=== PATIENT | male | born 1960 | race African-American/Black ===

== ENCOUNTER 2018-10-21 09:29 | Inpatient (IN) | payer OTHER ==
[2018-10-21 09:59] VITALS: BMI 24.3
--- NOTE | 2018-10-21 10:29 | HP ---
COWS - Scale Resting Pulse: 0= RI 80 or Below Sweatin= Chills/Flushing Restless Observation: 1= Difficult to Sit Still Pupil Size: 0= Normal to Room Light Bone or Joint Aches: 2= Severe Diffuse Aches Runny Nose/ Eye Tearin= Runny Nose/Eyes GI Upset > 30mins: 2= Nausea/Diarrhea Tremor Observation: 0= None Yawning Observation: 0= None Anxiety or Irritability: 2=Irritable/Anxious Goose Flesh Skin: 0=Smooth Skin COWS Score: 10 CIWA Score Nausea/Vomitin-No Nausea/No Vomiting Muscle Tremors: None Anxiety: 4-Mod. Anxious/Guarded Agitation: 3 Paroxysmal Sweats: 1-Minimal Palms Moist Orientation: 0-Oriented Tacttile Disturbances: 2-Mild Itch/Numbness/Burn Auditory Disturbances: 0-None Visual Disturbances: 0-None Headache: 0-None Present CIWA-Ar Total Score: 10 - Admission Criteria OASAS Guidelines: Admission for Medically Managed Detox: Requires at least one of the followin. CIWA greater than 12 2. Seizures within the past 24 hours 3. Delirium tremens within the past 24 hours 4. Hallucinations within the past 24 hours 5. Acute intervention needed for co occurring medical disorder 6. Acute intervention needed for co occurring psychiatric disorder 7. Severe withdrawal that cannot be handled at a lower level of care (continued vomiting, continued diarrhea, abnormal vital signs) requiring intravenous medication and/or fluids 8. Admission ROS [facility] Allergies/Adverse Reactions: Allergies Allergy/AdvReac Type Severity Reaction Status Date / Time egg Allergy Vomiting Verified 10/21/18 09:46 History of Present Illness: pt here requesting detox from opiate and etoh use , reports 1 large can of beer /day , current symptoms as above , etoh use " for years " since age 16 , denies seizures, + blackouts . heroin : 10-12 bags/day via inhalation , past IVDU use , first age of use 16 , current symptoms as above , latest use yesterday cannabis - occasional use tobacco : 1/2 ppd PMHX : HIV dx 1991 , on meds @ [facility] PSHx : alicia hernia inguinal 10 years ago , bunionectomy R 1995 PSych : denies , denies cuurent SI / HI SHx : lives alone , unemployed . Exam Limitations: Clinical Condition - Ebola screening Have you traveled outside of the country in the last 21 days: No Have you had contact with anyone from an Ebola affected area: No Do you have a fever: No - Review of Systems Constitutional: See HPI EENT: reports: See HPI Respiratory: reports: No Symptoms reported Cardiac: reports: No Symptoms Reported GI: reports: See HPI : reports: No Symptoms Reported Musculoskeletal: reports: Back Pain, Muscle Pain Integumentary: reports: See HPI Neuro: reports: No Symptoms reported Endocrine: reports: No Symptoms Reported Psychiatric: reports: Orientated x3, Agitated, Anxious Patient History - Smoking Cessation Smoking history: Current every day smoker Initiated information on smoking cessation: No - Substances abused Heroin Substance route: Inhalation Frequency: Daily Amount used: 10 bags Age of first use: 16 Date of last use: 10/20/18 Alcohol Substance route: Oral Frequency: Daily Amount used: [place] beer - 1 bottle Age of first use: 16 Date of last use: 10/20/18 Marijuana/Hashish Substance route: Smoking Frequency: Daily Amount used: quarter ounce Age of first use: 16 Date of last use: 10/20/18 Family Disease History - Family Disease History Family Disease History: Other: Father (d. 70's), Mother (d. 70's ) Admission Physical Exam S - Vital Signs Vital Signs: Vital Signs - 24 hr 10/21/18 10/21/18 09:45 10:15 Temperature 97.4 F L 97.4 F L Pulse Rate 170 H 170 H Respiratory 16 16 Rate Blood Pressure 138/84 138/84 - Physical General Appearance: Yes: Mild Distress, Irritable, Anxious HEENTM: Yes: EOMI, Hearing grossly Normal, Normocephalic, Normal Voice Respiratory: Yes: Chest Non-Tender, Lungs Clear, Normal Breath Sounds Neck: Yes: No masses,lesions,Nodules, Trachea in good position Cardiology: Yes: Regular Rhythm, Regular Rate, S1, S2 Abdominal: Yes: Non Tender, Soft Back: Yes: Normal Inspection Musculoskeletal: Yes: Gait Steady Extremities: Yes: Non-Tender Neurological: Yes: Fully Oriented, Alert, Motor Strength 5/5 Integumentary: Yes: Track Yee - Diagnostic (1) Opioid abuse Current Visit: Yes Status: Acute (2) Cannabis dependence Current Visit: Yes Status: Acute (3) Nicotine dependence Current Visit: Yes Status: Acute Qualifiers: Nicotine product type: cigarettes (4) Alcohol use disorder Current Visit: Yes Status: Acute Breathalyzer - Breathalyzer Breathalyzer: 0 Urine Drug Screen - Test Device Lot number: [id number] Expiration date: 05/16/20 - Control Is test valid?: Yes - Results Drug screen NEGATIVE: No Urine drug screen results: THC-Marijuana, FEN-Fentanyl, MOP-Opiates Inpatient Rehab Admission - Rehab Decision to Admit Inpatient rehab admission?: No
[2018-10-21] MEDS ORDERED: hydrOXYzine PAMOATE 25 MG CAPSULE (FP) PO PRN (10:35)
[2018-10-21] MEDS ORDERED: MAGNESIUM CITRATE 300 ML BOTTLE PO PRN (10:35)
[2018-10-21] MEDS ORDERED: MAGNESIUM HYDROX 2400MG/30ML ORAL SUSPENSION 30 ML CUP PO PRN (10:35)
[2018-10-21] MEDS ORDERED: ACETAMINOPHEN 325 MG TABLET (FP) PO PRN ×2 (10:35)
[2018-10-21] MEDS ORDERED: MENTHOL/PHENOL 1 EACH UD MM PRN (10:35)
[2018-10-21] MEDS ORDERED: MELATONIN 5 MG TABLETS PO PRN (10:35)
[2018-10-21] MEDS ORDERED: cloNIDine HCL 0.1 MG TABLET PO PRN ×2 (10:35→19:13)
[2018-10-21] MEDS ORDERED: DICYCLOMINE HCL 10 MG CAPSULE PO PRN (10:35)
[2018-10-21] MEDS ORDERED: NICOTINE POLACRILEX 2 MG GUM BUC PRN (10:35)
[2018-10-21] MEDS ORDERED: IBUPROFEN 400 MG TABLET (FP) PO PRN (10:35)
[2018-10-21] MEDS ORDERED: MAG HYDROX/AL HYDROX/SIMETH 30 ML UNIT-DOSE CUP PO PRN (10:35)
[2018-10-21] MEDS ORDERED: METHOCARBAMOL 500 MG TABLET PO PRN (10:35)
[2018-10-21] MEDS ORDERED: METHADONE HCL 10 MG TABLET (FOR DETOX USE ONLY) PO ONE ×3 (11:00→22:00)
[2018-10-21] MEDS: diazePAM 5 MG TABLET PO PRN ×3 (12:08→19:25)
[2018-10-21] MEDS: diazePAM 5 MG TABLET PO SCH ×2 (15:24→22:19)
[2018-10-21 19:31] LABS: HEMATOCRIT 38.8 % (35.4-49); HEMOGLOBIN 12.9 GM/dL (11.7-16.9); MCH 30.9 pg (25.7-33.7); MCHC 33.2 g/dl (32.0-35.9); MEAN PLT VOLUME 7.9 fl (7.5-11.1); PLATELET COUNT 261 K/MM3 (134-434); RBC 4.17 M/mm3 (4.00-5.60); RDW 14.3 % (11.9-15.9); WHITE BLOOD COUNT 3.2 K/mm3 (4.0-10.0)
[2018-10-21 19:39] LABS: ALK PHOS 108 U/L (45-117); ANION GAP 4 MMOL/L (8-16); BILIRUBIN,TOTAL 0.8 mg/dL (0.2-1); BLOOD UREA NITROGEN 17 mg/dL (7-18); CALCIUM 8.8 mg/dL (8.5-10.1); CHLORIDE 103 mmol/L (98-107); CO2 32 mmol/L (21-32); GLUCOSE,RANDOM 89 mg/dL (74-106); POTASSIUM 4.3 mmol/L (3.5-5.1); SGOT/AST 31 U/L (15-37); SGPT/ALT 32 U/L (13-61); SODIUM 139 mmol/L (136-145); TOT PROT 7.3 g/dl (6.4-8.2)
[2018-10-21] MEDS ORDERED: THIAMINE HCL 100 MG TABLET (FP) PO SCH (22:00)
[2018-10-22] MEDS: diazePAM 5 MG TABLET PO SCH (06:10)
[2018-10-22] MEDS: diazePAM 5 MG TABLET PO PRN (07:50)
[2018-10-22] MEDS ORDERED: EMTRICITABINE 200MG/TENOFOVIR 300MG PO SCH (08:00)
[2018-10-22] MEDS ORDERED: ATAZANAVIR SO4 300 MG CAPSULE PO SCH (08:00)
[2018-10-22] MEDS ORDERED: RITONAVIR 100 MG TABLET PO SCH (08:00)
[2018-10-22] MEDS ORDERED: ONDANSETRON *ODT* 4 MG TABLET SL ONE (09:00)
[2018-10-22] MEDS ORDERED: METHADONE HCL 10 MG TABLET (FOR DETOX USE ONLY) PO ONE (10:00)
[2018-10-22] MEDS ORDERED: PRENATAL VITAMINS W/ FOLIC ACID TABLET (FP) PO SCH (10:00)
[2018-10-22 10:15] VITALS: BP 139/98; PULSE 78; TEMP 97.7
--- NOTE | 2018-10-22 13:21 | DS ---
[facility] Detox Discharge Summary Admission Date: 10/21/18 Discharge Date: 10/22/18 - History Present History: Alcohol Dependence, Opioid Dependence Additional Comments: 58 years old male admitted on 10/21/18 for alcohol and opiate withdrawal stabilization insists to leave the detox unit patient wants to return to his infectious disease specialist for HIV status patient may consider medication assisted maintenance treatment program for opiate misuse alert no acute distress denies suicidal ideation patient wants to leave with his roommate strong recommend support each other toward sobriety Pertinent Past History: bring in medication list and lab report to follow up appointment strong recommend the patient to go to medication assisted maintenance treatment program - Physical Exam Results Vital Signs: Vital Signs Temperature 97.7 F 10/22/18 10:15 Pulse Rate 78 10/22/18 10:15 Respiratory Rate 18 10/22/18 10:15 Blood Pressure 139/98 10/22/18 10:15 O2 Sat by Pulse Oximetry (%) Pertinent Admission Physical Exam Findings: alcohol and opiate withdrawal sx Laboratory Last Values WBC 3.2 K/mm3 (4.0-10.0) L 10/21/18 11:05 RBC 4.17 M/mm3 (4.00-5.60) 10/21/18 11:05 Hgb 12.9 GM/dL (11.7-16.9) 10/21/18 11:05 Hct 38.8 % (35.4-49) 10/21/18 11:05 MCV 93.0 fl (80-96) 10/21/18 11:05 MCH 30.9 pg (25.7-33.7) 10/21/18 11:05 MCHC 33.2 g/dl (32.0-35.9) 10/21/18 11:05 RDW 14.3 % (11.9-15.9) 10/21/18 11:05 Plt Count 261 K/MM3 (134-434) 10/21/18 11:05 MPV 7.9 fl (7.5-11.1) 10/21/18 11:05 Sodium 139 mmol/L (136-145) 10/21/18 11:05 Potassium 4.3 mmol/L (3.5-5.1) 10/21/18 11:05 Chloride 103 mmol/L (98-107) 10/21/18 11:05 Carbon Dioxide 32 mmol/L (21-32) 10/21/18 11:05 Anion Gap 4 MMOL/L (8-16) L 10/21/18 11:05 BUN 17 mg/dL (7-18) 10/21/18 11:05 Creatinine 1.0 mg/dL (0.55-1.3) 10/21/18 11:05 Creat Clearance w eGFR 76.48 (>60) 10/21/18 11:05 Random Glucose 89 mg/dL (74-106) 10/21/18 11:05 Calcium 8.8 mg/dL (8.5-10.1) 10/21/18 11:05 Total Bilirubin 0.8 mg/dL (0.2-1) 10/21/18 11:05 AST 31 U/L (15-37) 10/21/18 11:05 ALT 32 U/L (13-61) 10/21/18 11:05 Alkaline Phosphatase 108 U/L (45-117) 10/21/18 11:05 Total Protein 7.3 g/dl (6.4-8.2) 10/21/18 11:05 Albumin 4.0 g/dl (3.4-5.0) 10/21/18 11:05 RPR Titer Nonreactive (NONREACTIVE) 10/21/18 11:05 lab noted low wbc - Treatment Hospital Course: Detox Protocol Followed, Responded well Patient has Accepted a Rehab Referral to: infectious disease specialist - Medication Discharge Medications: Ambulatory Orders Atazanavir [Reyataz -] 300 mg PO DAILY 10/21/18 Emtricitabine/Tenofovir [Truvada -] 1 tablet PO DAILY 10/21/18 Norvir - 1 tablet PO DAILY 10/21/18 - Diagnosis (1) HIV (human immunodeficiency virus infection) Current Visit: Yes Status: Chronic Qualifiers: HIV symptom status: asymptomatic Qualified Code(s): Z21 - Asymptomatic human immunodeficiency virus [HIV] infection status (2) Alcohol use disorder Current Visit: Yes Status: Acute (3) Nicotine dependence Current Visit: Yes Status: Acute Qualifiers: Nicotine product type: cigarettes Substance use status: in withdrawal Qualified Code(s): F17.213 - Nicotine dependence, cigarettes, with withdrawal (4) Opioid abuse Current Visit: Yes Status: Acute - AMA Did Patient Leave Against Medical Advice: No
[2018-10-22] MEDS ORDERED: diazePAM 5 MG TABLET PO SCH (14:00)
[2018-10-23] MEDS ORDERED: diazePAM 5 MG TABLET PO ONE (06:00)
[2018-10-23] MEDS ORDERED: METHADONE HCL 10 MG TABLET (FOR DETOX USE ONLY) PO ONE (10:00)
[2018-10-24] MEDS ORDERED: METHADONE HCL 10 MG TABLET (FOR DETOX USE ONLY) PO ONE (10:00)
[2018-10-25] MEDS ORDERED: METHADONE HCL 5 MG TABLET (FOR DETOX USE ONLY) PO ONE (06:00)
== END 2018-10-22 11:05 | disposition left against medical advice (07) | DRG 770 ==
LOC: YASAS 09:29 → Y3N 10:51
PROVIDERS: ADMIT Surgery; ATTEND Surgery
PROC: HZ2ZZZZ Detoxification Services for Substance Abuse Treatment (ICD-10-PCS; principal; 2018-10-21)
DX: F11.23 Opioid dependence with withdrawal (principal); F10.230 Alcohol dependence with withdrawal, uncomplicated; F12.20 Cannabis dependence, uncomplicated; F17.210 Nicotine dependence, cigarettes, uncomplicated; Z21 Asymptomatic human immunodeficiency virus [HIV] infection status; Z91.012 Allergy to eggs
CPT/HCPCS: 36415; 80053; 85027; 86593; J0735